=== PATIENT | male | born 1990 | race Caucasian/White ===

== ENCOUNTER 2021-01-09 11:58 | Emergency (ER) | payer BC ==
[~2021-01-09] VITALS: Ht 172.7 cm; Wt 75.0 kg
[2021-01-09 12:04] VITALS: TEMP 98.1
[2021-01-09] MEDS ORDERED: ROBAXIN 75750 MG/TAB PO (12:50)
[2021-01-09 13:06] VITALS: BP 127/73; PULSE 70
== END 2021-01-09 13:06 | disposition home or self-care (01) ==
LOC: COL.ER 11:58
DX: M25.511 Pain in right shoulder (principal)